=== PATIENT | male | born 1940 | race Caucasian/White ===

== ENCOUNTER 2024-06-27 07:36 | Emergency (ER) | payer MEDICARE, BC, SELFPAY ==
[2024-06-27 07:38] VITALS: BP 199/96
[2024-06-27 07:54] VITALS: BMI 26.8
[2024-06-27 08:04] VITALS: BP 175/82
[2024-06-27 08:18] LABS: % Basophils 0.7 % (0-2); % Eosinophils 2.2 % (0-6); % Immature Granulocytes 0.3 % (0-0.5); % Lymphocytes 28.2 % (20.5-51.1); % Monocytes 8.2 % (1.7-9.3); % Neutrophils 60.4 % (42.2-75.2); Absolute Eosinophils 0.1 10^3/uL (0-0.7); Absolute Lymphocytes 1.7 10^3/uL (1.2-3.4); Absolute Monocytes 0.5 10^3/uL (0.1-0.6); Absolute Neutrophils 3.5 10^3/uL (1.4-6.5); Hematocrit 44.9 % (39.0-52.0); Hemoglobin 15.7 g/dL (13.0-18.0); Mean Corpuscular Hgb 31.7 pg (27.0-31.0); Mean Corpuscular Volume 90.7 fL (80.0-94.0); Mean Platelet Volume 9.9 fL (7.4-10.4); Nucleated Red Blood Cells % 0 % (-); Platelet Count 272 10^3/uL (130-400); Red Blood Cell Count 4.95 10^6/uL (4.70-6.10); Red Cell Dist. Width 12.8 % (11.5-14.5); White Blood Cell Count 5.9 10^3/uL (4.8-10.8)
--- NOTE | 2024-06-27 08:22 | ED.GENMED ---
History of Present Illness
General
Chief Complaint: Dizziness
Source: patient and spouse
Time Seen by Provider: 06/27/24 07:56
History of Present Illness
History of Present Illness:
Presents to the emergency room for evaluation of having a sensation that his balance and coordination is off. Patient first noticed the symptoms approximately 8 PM last night. He denies any focal numbness, tingling or weakness. His speech is
normal. He has no word finding difficulty. Patient denies a sense of movement or spinning but rather just feels like he has difficulty with coordination. He is able to ambulate but takes short steps. No headache. No chest pain or shortness of
breath. Patient returned from a trip to [place] 3 days ago. He has been feeling jet lag. He denies taking any sedatives or pain medication.
Past History
Past History
ED Past Medical History: None
ED Past Surgical History: Orthopedic
Phy Exam
Physical Exam
Physical Exam:
General: Awake, Alert, Oriented X3. No acute distress.
Vitals: unremarkable
Head: Atraumatic
Eyes: Pupils equal, EOMI
Throat: Airway intact, no exudates
Neck: Trachea midline
Lungs: Clear and equal b/l
Heart: Regular rate, no murmurs
Abd: Soft, Nontender, No pulsatile mass
Neuro: Cranial nerves intact, muscle strength equal bilaterally, cerebellar exam normal. No nystagmus elicited with a [place]-Hallpike maneuver
Skin: Warm, dry, no rash
Extremities: pulses equal b/l, no edema
Course
Orders/Labs/Results
Orders:
Orders
06/27/24 08:07
Complete Blood Count/With Diff Urgent
Comprehensive Metabolic Panel Urgent
Troponin I Urgent
06/27/24 08:13
EKG [Electrocardiogram (*1)] Urgent
Reason for Study: Vertigo / Dizzy
EKG- Treatment ONCE
06/27/24 08:18
CT Head & Neck Angio W/wo IV Urgent
Comment:
Reason For Exam: ataxia
06/27/24 08:19
0.9% Sodium Chloride 500 ml [Nss] 500 ml IV BOLUS
Abnormal Lab Results
06/27/24
08:07
MCH 31.7 H pg
(27.0-31.0)
Glucose 103 H mg/dl
(70-99)
06/27/24 08:07
06/27/24 08:07
Vital Signs
Initial and Last Documented VS:
Initial Vital Signs
Temp Pulse Resp BP Pulse Ox
97.8 F 51 16 199/96 99
06/27/24 07:38 06/27/24 07:38 06/27/24 07:38 06/27/24 07:38 06/27/24 07:38
Last Documented Vital Signs
Temp Pulse Resp BP Pulse Ox
97.8 F 56 16 136/80 98
06/27/24 07:38 06/27/24 12:00 06/27/24 12:00 06/27/24 12:00 06/27/24 11:45
MDM/Problems Addressed
Differential Diagnosis Includes:
cva, dehydration, electrolyte abn
MDM/Problems Addressed:
83-year-old male presents with difficulty walking. He feels somewhat off balance. Physical exam does not show any significant ataxia that does seem to walk with a shortened gait to help with his balance. Labs are reassuring. CT head and neck
shows no acute ischemic event at no large vessel occlusion. Neurology consultation was obtained. Dr. Scales came and evaluated the patient. He observed the CT scan and felt that there was significant cervical degenerative changes which might be
causing stenosis of the cervical canal. Patient is stable for discharge home. He recommends MRI and neurosurgical follow-up as an outpatient.
*Radiology
Radiology exam reviewed: radiology read reviewed
*Pulse Oximetry
Patient hypoxic: no
*EKG
Interpreted by ED Provider?: Yes
Heart Rate: 51
Rate: bradycardiac
Rhythm: sinus
QRS Pattern: left bundle branch block
Ischemia: no ischemia
*Tugboat Captain Interpretation
Rate: bradycardiac
Interpretation: abnormal
Heart Rate: 51
Rhythm: sinus
*Critical Care Note
Total Time (30-74mins, 75-104mins- exclusive of procedures): Not Applicable
ED Attending Note
-
Portions of this chart may have been created with voice recognition software.� Occasional wrong word or��sound alike� substitutions may have occurred due to the inherent limitations of voice recognition software.
Discharge Plan
Departure
Patient Disposition: Home (Routine Discharge)
Date of Disposition: 06/27/24
Time of Disposition: 12:08
Patient with high blood pressure during this ER visit?: Yes
Condition: Good
Discharge Problem:
Ataxia, Cervical spinal stenosis
Instructions: Cervical Myelopathy
Prescriptions:
No Action
olmesartan 20 MG tablet
40 mg PO DAILY
finasteride 5 mg Tablet
5 mg PO DAILY
omeprazole 20 mg Tablet,Delayed Release (Dr/Ec)
20 mg PO Q48H
latanoprost 0.005 % Drops
1 drp BOTH EYES HS
famotidine 20 MG tablet
20 mg PO DAILYPRN PRN (Reason: gerd)
dorzolamide-timolol 1 DROP drops
1 drp BOTH EYES BID
Referrals:
Sho Wilkerson MD [Family Provider] -
Mela Spain MD [Active] -
Activity Restrictions/Additional Instructions:
Fortunately your workup here in the emergency room did not show any evidence for a stroke. You were evaluated by Dr. Scales from neurology. He believes your symptoms are related to narrowing of the cervical spine. He recommends that you follow-up
with your primary care doctor and get a referral for an MRI of the cervical spine as well as a referral for neurosurgical evaluation. I have provided you the contact information for neurosurgeons that are local.
Interventions
Interventions:
*Risk Screen - Suicide Last Done: 06/27/24 08:12
*General Assessment Last Done: 06/27/24 07:38
*Neglect/Abuse Screening Last Done: 06/27/24 08:12
ED- Fall Risk Assessment Last Done: 06/27/24 07:57
*ED COVID-19 Vaccine History Last Done: 06/27/24 07:38
*Nursing Disposition Last Done: 06/27/24 12:26
ED- Neurological Assessment Last Done: 06/27/24 07:57
ED- Cardiac Assessment Last Done: 06/27/24 07:57
ED Swallowing Screen Last Done: 06/27/24 07:57
Discharge Date and Time
Discharge Date/Time: 06/27/24 12:25
Print Language: LAO
[2024-06-27] MEDS: NSS 500 IV (08:27)
[2024-06-27 08:30] LABS: ALT (SGPT) 29 U/L (0-50); AST (SGOT) 34 U/L (17-59); Albumin 4.6 g/dl (3.5-5.0); Alkaline Phosphatase 53 U/L (38-126); Blood Urea Nitrogen 15 mg/dl (9-20); Calcium 9.9 mg/dl (8.4-10.2); Carbon Dioxide 27 mmol/L (22-30); Chloride 101 mmol/L (98-107); Estimated Creatinine Clearance 54 ml/min; Glucose 103 mg/dl (70-99); Potassium 4.8 mmol/L (3.5-5.1); Sodium 140 mmol/L (135-145); Total Bilirubin 0.7 mg/dl (0.2-1.3); Total Protein 7.6 g/dl (6.3-8.2); eGFR > 60.00
[2024-06-27 08:41] LABS: Troponin I < 0.012 ng/ml
[2024-06-27 11:00] VITALS: BP 149/73
[2024-06-27 12:00] VITALS: BP 136/80
== END 2024-06-27 12:25 | disposition home or self-care (01) ==
LOC: EMR 07:36
PROVIDERS: EMERGENCY PHYSICIAN Emergency Medicine; FAMILY PHYSICIAN Family Medicine
DX: R27.0 Ataxia, unspecified (principal); M48.02 Spinal stenosis, cervical region; R03.0 Elevated blood-pressure reading, without diagnosis of hypertension; R42 Dizziness and giddiness; R26.2 Difficulty in walking, not elsewhere classified; I44.7 Left bundle-branch block, unspecified
CPT/HCPCS: 99284; 96360; 70496; 70498; 80053; 84484; 85025; 93005; Q9967

== ENCOUNTER → 2024-09-12 06:26 | Day surgery (SDC) | payer MEDICARE, BC, SELFPAY | LOC: GI 06:26 | PROVIDERS: ATTENDING PHYSICIAN Internal Medicine Gastroenterology | DX: Z12.11 Encounter for screening for malignant neoplasm of colon (principal); K64.8 Other hemorrhoids; K44.9 Diaphragmatic hernia without obstruction or gangrene; K31.7 Polyp of stomach and duodenum; K22.89 Other specified disease of esophagus; K22.70 Barrett's esophagus without dysplasia; K29.70 Gastritis, unspecified, without bleeding; K29.81 Duodenitis with bleeding; Z86.0100 Personal history of colon polyps, unspecified | CPT/HCPCS: 43239; G0105; 88305; 88342 ==

== ENCOUNTER → 2025-05-29 13:41 | Outpatient (REF) | payer MEDICARE, BC, SELFPAY | LOC: RCS 13:41 | PROVIDERS: ATTENDING PHYSICIAN Internal Medicine Cardiovascular Disease; FAMILY PHYSICIAN Family Medicine | DX: R00.2 Palpitations (principal) | CPT/HCPCS: 93306 ==

== ENCOUNTER 2025-09-13 18:43 | Inpatient (IN) | payer MEDICARE, BC, SELFPAY ==
[2025-09-13] VITALS (7 sets, daily range): BP systolic 123–160; BP diastolic 67–86; BMI 26.4
--- NOTE | 2025-09-13 15:38 | ED.GENMED ---
History of Present Illness
<Carl Mckeon MD, Resident - Last Filed: 09/13/25 17:32>
General
Chief Complaint: Fall
Source: patient
Time Seen by Provider: 09/13/25 15:25
History of Present Illness
History of Present Illness:
Patient is an 84-year-old male with PMH HTN, HLD, L femur fracture, and PE who presents to the [place] ED for hip injury suffered after mechanical fall around 2 PM this afternoon. Patient was going down steps in his garage when he tripped and
fell on his left hip. No loss of consciousness. No blood thinners. Patient did not hit his head. Patient immediately experienced pain in his left hip, and he was unable to get up due to pain. Fortunately, a neighbor quickly noticed he had
fallen and came to his aid. Even with the neighbor's help, patient had limited mobility due to pain. Patient then decided to go to the ED. At rest and with external rotation of the hip, patient's pain is 1/10. With attempted hip flexion or
internal rotation of the leg, patient's pain is a 10/10. Pain localized to left hip, without radiation. Limited ROM due to pain. Otherwise, motor and sensory intact.
Past History
<Carl Mckeon MD, Resident - Last Filed: 09/13/25 17:32>
Past History
ED Past Medical History: GERD, HTN, Hypercholesterolemia and Other (Pulmonary embolism)
ED Past Surgical History: Orthopedic (L femur fracture)
Review of Systems
<Carl Mckeon MD, Resident - Last Filed: 09/13/25 17:32>
Review of Systems
Constitutional: Denies fever, fatigue or chills
Respiratory: Denies trouble breathing
Cardiac: Denies chest pain, palpitations or syncope
Musculoskeletal: Reports joint pain
Neurological: Denies weakness or numbness
Phy Exam
<Carl Mckeon MD, Resident - Last Filed: 09/13/25 17:32>
Physical Exam
Physical Exam:
General: NAD. Conversant.
MSK: Patient lying in bed comfortably with left leg externally rotated. Severely reduced ROM due to pain with attempted internal rotation of leg and flexion of hip. Point tenderness on palpation of left hip.
Neuro: A&O x 3. No focal deficits. Motor, sensory intact bilateral lower extremities. No pallor, cyanosis, or coolness to touch in bilateral lower extremities. CN II through XII grossly intact.
CV: RRR. S1, S2 noted. No M/R/G. No LE edema.
Pulm: CTAB. No wheeze or crackles.
GI: Soft, nontender. Nondistended.
Course
<Carl Mckeon MD, Resident - Last Filed: 09/13/25 17:32>
Orders/Labs/Results
Orders:
Orders
09/13/25 15:28
Hip, Left 2-3 Views [CR Hip - LT w/wo Pel 2-3 Vw*] Urgent
Comment:
Reason For Exam: fall
Include a pelvis x-ray?: Yes
09/13/25 16:15
Complete Blood Count/With Diff Urgent
Comprehensive Metabolic Panel Urgent
09/13/25 16:22
Femur, Left 2 View [CR Femur - Left Min 2 Vw] Urgent
Comment:
Reason For Exam: L hip fx, prior femur fx
Knee, Left 3 Views [CR Knee - Left 3 Views] Urgent
Comment:
Reason For Exam: L hip fx, prior femur fx
09/13/25 16:32
Ketorolac [Toradol] 15 mg IV NOW STA
Abnormal Lab Results
09/13/25
16:15
RBC 4.66 L 10^6/uL
(4.70-6.10)
MCH 31.3 H pg
(27.0-31.0)
Sodium 132 L mmol/L
(135-145)
Chloride 97 L mmol/L
(98-107)
Glucose 114 H mg/dl
(70-99)
09/13/25 16:15
09/13/25 16:15
Vital Signs
Initial and Last Documented VS:
Initial Vital Signs
Temp Pulse Resp Pulse Ox
97.8 F 68 18 99
09/13/25 15:18 09/13/25 15:18 09/13/25 15:18 09/13/25 15:18
Last Documented Vital Signs
Temp Pulse Resp BP Pulse Ox
97.8 F 71 18 156/86 99
09/13/25 15:18 09/13/25 15:26 09/13/25 15:18 09/13/25 15:26 09/13/25 15:39
<Carl Bianchi MD - Last Filed: 09/13/25 16:49>
Orders/Labs/Results
Orders:
Orders
09/13/25 15:28
Hip, Left 2-3 Views [CR Hip - LT w/wo Pel 2-3 Vw*] Urgent
Comment:
Reason For Exam: fall
Include a pelvis x-ray?: Yes
09/13/25 16:15
Complete Blood Count/With Diff Urgent
Comprehensive Metabolic Panel Urgent
09/13/25 16:22
Femur, Left 2 View [CR Femur - Left Min 2 Vw] Urgent
Comment:
Reason For Exam: L hip fx, prior femur fx
Knee, Left 3 Views [CR Knee - Left 3 Views] Urgent
Comment:
Reason For Exam: L hip fx, prior femur fx
09/13/25 16:32
Ketorolac [Toradol] 15 mg IV NOW STA
Abnormal Lab Results
09/13/25
16:15
RBC 4.66 L 10^6/uL
(4.70-6.10)
MCH 31.3 H pg
(27.0-31.0)
Sodium 132 L mmol/L
(135-145)
Chloride 97 L mmol/L
(98-107)
Glucose 114 H mg/dl
(70-99)
09/13/25 16:15
09/13/25 16:15
Vital Signs
Initial and Last Documented VS:
Initial Vital Signs
Temp Pulse Resp Pulse Ox
97.8 F 68 18 99
09/13/25 15:18 09/13/25 15:18 09/13/25 15:18 09/13/25 15:18
Last Documented Vital Signs
Temp Pulse Resp BP Pulse Ox
97.8 F 71 18 156/86 99
09/13/25 15:18 09/13/25 15:26 09/13/25 15:18 09/13/25 15:26 09/13/25 15:39
<Carl Mckeon MD, Resident - Last Filed: 09/13/25 17:32>
MDM/Problems Addressed
Differential Diagnosis Includes:
Hip fracture
Hip contusion
Hip dislocation
Femur fracture
Femur contusion
MDM/Problems Addressed:
Assessment: Patient is an 84-year-old male with PMH of HTN, PE, and L femur fracture who presents to the [place] ED for severe L hip pain, inability to ambulate, and reduced ROM due to pain following a mechanical fall at home that caused him to
fall on his L hip. No blood thinners, loss of consciousness, or head injury. L hip x-ray showed acute comminuted and angulated intertrochanteric left femur fracture.
Plan:
#L hip pain
Imaging: L hip x-ray, L femur x-ray, L knee x-ray
Labs: CBC, CMP
Orthopedics aware, plan for or tomorrow
Admit to medicine
<Carl Mckeon MD, Resident - Last Filed: 09/13/25 17:32>
*Pulse Oximetry
SaO2: 99
Oxygen Mode of Delivery: Room air
Patient hypoxic: no
*Critical Care Note
Total Time (30-74mins, 75-104mins- exclusive of procedures): Not Applicable
ED Attending Note
<Carl cMkeon MD, Resident - Last Filed: 09/13/25 17:32>
-
Portions of this chart may have been created with voice recognition software.� Occasional wrong word or��sound alike� substitutions may have occurred due to the inherent limitations of voice recognition software.
<Carl Bianchi MD - Last Filed: 09/13/25 16:49>
ED Attending Note
Patient seen and examined by attending physician: Yes
I performed a history and physical exam of patient and discussed management with resident, I reviewed resident's note and agree with documented findings and plan of care.: Yes
ED Attending Note:
Patient tripped and fell landing on his left hip. No syncope. No other trauma. No head injury neck injury chest wall injury. No chest pain or shortness of breath. Significant pain at the left hip. Unable to ambulate. Previous history of a phill
in the left femur 2 years ago in [place].
On exam patient is nontoxic. Normocephalic atraumatic. Neck nontender. No chest wall tenderness. Lungs are clear and equal. Heart regular rate and rhythm. Abdomen is nontender. Upper extremities unremarkable. Right lower extremity
unremarkable. Pelvis is stable. Shortened externally rotated left leg at the hip. Obvious left proximal femur fracture. Discussed with orthopedics. They did ask for some additional views. Will admit medically with pending OR. NPO.
Discharge Plan
Departure
Prescriptions:
No Action
olmesartan 20 MG tablet
40 mg PO DAILY
finasteride 5 mg Tablet
5 mg PO DAILY
omeprazole 20 mg Tablet,Delayed Release (Dr/Ec)
20 mg PO Q48H
latanoprost 0.005 % Drops
1 drp BOTH EYES HS
famotidine 20 MG tablet
20 mg PO DAILYPRN PRN (Reason: gerd)
dorzolamide-timolol 1 DROP drops
1 drp BOTH EYES BID
Referrals:
Sho Wilkerson MD [Family Provider, Family Practice]
Interventions
Interventions:
*Risk Screen - Suicide Last Done: 09/13/25 15:26
*General Assessment Last Done: 09/13/25 15:26
*Neglect/Abuse Screening Last Done: 09/13/25 15:26
*ED- Fall Risk Assessment Last Done: 09/13/25 15:29
*ED COVID-19 Vaccine History Last Done: 09/13/25 15:29
*ED Influenza Vaccine History Last Done: 09/13/25 15:29
ED-Musculoskeletal Assessment Last Done: 09/13/25 15:30
ED- Neurological Assessment Last Done: 09/13/25 15:30
ED-Skin Assessment Last Done: 09/13/25 15:30
Discharge Date and Time
Print Language: [place]
[2025-09-13 16:24] LABS: Hematocrit 42.1 % (39.0-52.0); Hemoglobin 14.6 g/dL (13.0-18.0); Mean Corp Hgb Conc. 34.7 g/dL (33.0-37.0); Mean Corpuscular Volume 90.3 fL (80.0-94.0); Nucleated Red Blood Cells % 0 % (-); Platelet Count 260 10^3/uL (130-400); Red Cell Dist. Width 12.7 % (11.5-14.5)
[2025-09-13 16:41] LABS: ALT (SGPT) 26 U/L (0-50); AST (SGOT) 27 U/L (17-59); Albumin 4.4 g/dl (3.5-5.0); Alkaline Phosphatase 45 U/L (38-126); Blood Urea Nitrogen 18 mg/dl (9-20); Calcium 9.1 mg/dl (8.4-10.2); Carbon Dioxide 27 mmol/L (22-30); Chloride 97 mmol/L (98-107); Estimated Creatinine Clearance 49 ml/min; Glucose 114 mg/dl (70-99); Potassium 3.8 mmol/L (3.5-5.1); Sodium 132 mmol/L (135-145); Total Protein 7.3 g/dl (6.3-8.2); eGFR > 60.00
[2025-09-13] MEDS: TORADOL 15 MG IV ×2 (17:17→21:18)
--- NOTE | 2025-09-13 17:51 | HPS.HSE ---
Family Physician
-
Family Physician: Sho Wilkerson MD
Chief Complaint
-
Fall, left hip/femur pain external rotation of leg
History of Present Illness
84-year-old male who was going down the steps in his garage when he tripped and fell landing on his left hip he denies hitting his head or loss of consciousness. He was unable to get up due to pain. His neighbor called EMS who brought him to the
ER where he was found to have a left intertrochanteric femur fracture on x-rays. Patient with history of prior femur fracture. He has externally rotated left leg. The patient denies head injury, headache, fever, chills, sore throat, chest pain,
palpitations, cough, shortness of breath, abdominal pain, nausea, vomiting, diarrhea, urinary symptoms. Patient has past medical history of daily alcohol use, osteopenia, osteoarthritis bilateral knees, rheumatoid arthritis, HTN, HLD, bilateral
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
Medical History
Past Medical History
Past Medical History: Reports Other
Additional Past Medical History:
Daily alcohol use
Osteopenia
Osteoarthritis bilateral knees
Rheumatoid arthritis patient reports in remission used to be on methotrexate
HTN
HLD
Bilateral pulmonary embolisms provoked post total knee arthroplasty 2018
Right lower extremity DVT 2018
Gout
GERD
Heaton's esophagus
Diverticulosis/diverticulitis
Glaucoma
BPH with urinary retention
simple kidney cysts.
Past Surgical History: Reports Other
Additional Past Surgical History:
Bilateral knee replacement 04/25/2019
Left femur fracture repair
Laminectomy 1981
Bilateral cataract extraction
Left eye glaucoma surgery
Social History
Tobacco: Non-smoker
Alcohol: Daily (12 ounces of wine daily)
Drug: None
Personal:
Living: With Family ()
Employment: Retired
Family History
Family History: Not pertinent
Allergies / Home Medications
Allergies reflects when Allergies were last updated in [facility].
Home Medications with original date entered in [facility]
Allergy/Medication List:
Allergies
Allergy/AdvReac Type Severity Reaction Status Date / Time
No Known Allergies Allergy Verified 06/27/24 07:43
Home Medications
olmesartan 20 mg tablet 40 mg PO DAILY 05/26/19
dorzolamide 22.3 mg-timolol 6.8 mg/mL eye drops 1 drp BOTH EYES BID 06/27/24
finasteride 5 mg tablet 5 mg PO DAILY 06/27/24
latanoprost 0.005 % eye drops 1 drp BOTH EYES HS 06/27/24
omeprazole 20 mg tablet,delayed release 20 mg PO Q48H 06/27/24
M.V.I. 1 tab PO DAILY 09/13/25
brimonidine 0.1 % eye drops 1 drp LEFT EYE BID 09/13/25
hydrochlorothiazide 25 mg tablet 25 mg PO DAILY 09/13/25
rosuvastatin 5 mg tablet 5 mg PO DAILY 09/13/25
Review of Systems
-
History Source: Patient and Family ()
A 12 point ROS was completed and negative except as noted: Yes
Constitutional: Denies Fever or Fatigue
EENT: Denies Sore Throat or Runny Nose
Respiratory: Denies Cough or Trouble Breathing
Cardiac: Denies Chest Pain, Diaphoresis, Palpitations or Syncope
Abdomen/GI: Denies Abdominal Pain, Nausea, Vomiting, Diarrhea or Constipated
: Denies Dysuria, Frequency, Flank Pain, Incontinence or Difficulty Voiding
Musculoskeletal: Reports Joint Pain (Left upper femur with swelling, pain, external rotation of left leg); Denies Edema
Skin: Denies Itching or Rash
Neurological: Denies Dizzy or Headache
Endocrine: Reports No Symptoms
Hematologic/Lymphatic: Reports No Symptoms
Psych: Reports Calm
Physical Exam
Vital Signs
Vital Signs
Temp Pulse Resp BP Pulse Ox
97.8 F 71 18 156/86 99
09/13/25 15:18 09/13/25 15:26 09/13/25 15:18 09/13/25 15:26 09/13/25 15:39
Physical Exam
General: Comfortable and Conversant
HEENT: NormoCephalic, Anicteric, Moist mucous membranes, Atraumatic, PERRLA, [place] Conjunctivae, No Ptosis and Neck Nontender
Respiratory: Clear; No Wheezes, Rales or Rhonchi
Cardiac: S1/S2 and Regular Rhythm; No Murmur, Rub, Gallop or Peripheral Edema
Breast: Deferred by me
GI: Soft, Non Tender, Non Distended, Normal Bowel Sounds and No Hepatosplenomegaly
Rectal: Deferred by Provider
Genito-urinary: Deferred by me
Musculoskeletal: No Clubbing, No Cyanosis and Edema, Left Lower Extremity (Left upper femur with swelling, pain, external rotation of left leg, dorsal pedal pulse +2, distal neurovascular status intact skin pink and warm); No Edema, Left Upper
Extremity, Edema, Right Upper Extremity or Edema, Right Lower Extremity
Skin: Warm and Dry; No Rash
Neuro: AO x 3, Nonfocal/grossly intact, Cranial Nerves Intact and No Sensory Deficits; No Slurred Speech, Facial Droop, Tremors or Sedated
Psych: Calm
Laboratory Results
-
09/13/25 16:15
09/13/25 16:15
Laboratory Results
Total Bilirubin 0.7 mg/dl (0.2-1.3) 09/13/25 16:15
AST 27 U/L (17-59) 09/13/25 16:15
ALT 26 U/L (0-50) 09/13/25 16:15
Alkaline Phosphatase 45 U/L (38-126) 09/13/25 16:15
Data Reviewed
-
Diagnostic Radiology: Report Reviewed by me
Lab Data: Labs Reviewed by me
Impression/Plan
-
Impression/plan:
Admit to MedSurg
#Mechanical fall with left intertrochanteric fx and old femur fracture
- N.p.o. after midnight
- OR tomorrow 09/14/2025 8 AM
- IV pain control
- PT/OT/case management consult
- Ortho consult Dr. Ramon aware
- IV Toradol, IV Dilaudid, IV Zofran as needed
- Check preop EKG
2D echo 05/29/2025: EF 57%, normal LV S LVSF, no wall abnormalities, mild LVH, mild MR/AR/TR
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
#Right lower extremity DVT 2019
#BPH with history urinary retention
Bladder scan protocol
- Continue finasteride 5 mg daily
#Alcohol use disorder
Patient drinks approximately 12 ounces of wine daily
No history of DTs/tremors
#History osteopenia
#Osteoarthritis bilateral knees
- Patient denies history of vitamin D or calcium intake
#Rheumatoid arthritis reports in remission
Used to be on methotrexate
#HTN�benign
BP 156/86
- Continue olmesartan 40 mg daily
-Continue HCTZ daily
#HLD
-Continue Crestor
#Gout
#GERD
#Heaton's esophagus
- Continue omeprazole 20 mg every 48 hours
#Glaucoma
- Continue dorzolamide/timolol 1 drop both eyes twice daily, brimonidine 0.1% left eye twice daily, latanoprost 1 drop both eyes at bedtime
Other PMH:
#Simple kidney cyst
#Diverticulosis/diverticulitis
DVT prophylaxis
SCDs will defer further DVT prophylaxis postsurgery to Ortho given history of bilateral PEs post bilateral knee replacements 2018
Full code
--- NOTE | 2025-09-13 18:20 | W.PN.UPDATE ---
Update Note
Progress Note Update
This note serves as an addendum to the H&P by dining room attendant cafeteria JANIS�
Desiree Keren
HPI
84M HX b/l TKA , HX provoked post op PE/DVT seen at ER: [facility] ER s/p OSH fall and Lt Hip pain
- tripped and fell landing on his left hip he denies hitting his head or loss of consciousness
- unable to get up due to pain.
- neighbor called EMS who brought him to the ER
- HX prior femur fracture.
ROS
denies head injury, headache, fever, chills, sore throat, chest pain, palpitations, cough, shortness of breath, urinary symptoms.
Relevant VS
Temp Pulse Resp BP Pulse Ox
97.8 F 71 18 156/86 99
09/13/25 15:18 09/13/25 15:26 09/13/25 15:18 09/13/25 15:26 09/13/25 15:39
PE
Gen: NAD
HEENT: anicteric , atraumatic head
Neck: supple
Lungs: CTA
Cor: RRR S1 S2
Abdomen:�soft benign
[employer]: AAO3
MS: no edema
Relevant Data
09/13/25
16:15
WBC 7.0
Hgb 14.6
Plt Count 260
Sodium 132 L
Potassium 3.8
Chloride 97 L
Creatinine 1.2
eGFR > 60.00
Glucose 114 H
L Knee XR
- Postsurgical change of the left knee. No evidence complication.
- Healed distal femur fracture.
- No acute fracture of the knee identified
L Hip XR
- Acute comminuted and angulated intertrochanteric left femur fracture. New.
- Moderate bilateral hip osteoarthritis. Stable
- Postsurgical and healing posttraumatic change of the left femoral shaft. New from previous exam
Last hospitalist admission:
ASSESSMENT & PLAN
Pending Rx reconciliation
Acute comminuted and angulated intertrochanteric left femur traumatic Fx
- associated with mechanical fall ( No head injury, Not on blood thinner)
- Moderate bilateral hip OA
- HX B/l TKR
- Not on blood thinners
- Risk outweigh benefits of ORIF
- Medically acceptable t proceed for Ortho OR
- Ortho consulted (Dr. Ramon) and planning on OR tomorrow at 8 AM
HX provoked b/l PE and DVT s/p B/l TKA ( 2019)
- currently not on OAC
DVT Px: SCD
Full code
IP MS
[2025-09-13] MEDS: PROTONIX 40 MG PO (21:18)
[2025-09-13] MEDS: NON-FORMULARY ITEM 1 DROP LEFT EYE (22:27)
[2025-09-13] MEDS: TRUSOPT 2% OPHTHALMIC SOLUTION OPHTH ×2 (22:28→22:34)
[2025-09-13] MEDS: TIMOPTIC 0.5% OPHTHALMIC SOLUTION 1 DROP OPHTH (22:28)
[2025-09-13] MEDS: XALATAN OPHTHALMIC SOLUTION 1 DROP BOTH EYES (22:28)
--- NOTE | 2025-09-13 23:03 | PTCARENOTE ---
Addendum entered by Yanira Roger RN 09/13/25 23:06:
Patient arrived to [facility] at 2000 from ED.
Original Note:
pt arrived to [facility] from ED, assisted from stretcher to bed. AAOx3, L leg slightly externally rotated and shorted. VSS and pt states pain is at acceptable level at this time. Pts' own eye drop sent down to pharmacy for identification. Plan of care
explained and all questions answered at this time, call faustin within reach. Assessment on going.
[2025-09-14] VITALS (10 sets, daily range): BP systolic 114–152; BP diastolic 67–88; PULSE 83; O2SAT 98
[2025-09-14 07:17] LABS: Hematocrit 39.9 % (39.0-52.0); Hemoglobin 13.2 g/dL (13.0-18.0); Mean Corp Hgb Conc. 33.1 g/dL (33.0-37.0); Mean Corpuscular Volume 92.1 fL (80.0-94.0); Nucleated Red Blood Cells % 0 % (-); Platelet Count 224 10^3/uL (130-400); Red Cell Dist. Width 12.7 % (11.5-14.5)
[2025-09-14 07:30] LABS: ALT (SGPT) 22 U/L (0-50); AST (SGOT) 22 U/L (17-59); Albumin 3.8 g/dl (3.5-5.0); Alkaline Phosphatase 42 U/L (38-126); Blood Urea Nitrogen 23 mg/dl (9-20); Calcium 8.9 mg/dl (8.4-10.2); Carbon Dioxide 28 mmol/L (22-30); Chloride 97 mmol/L (98-107); Estimated Creatinine Clearance 45 ml/min; Glucose 105 mg/dl (70-99); Potassium 3.8 mmol/L (3.5-5.1); Sodium 133 mmol/L (135-145); Total Protein 6.7 g/dl (6.3-8.2); eGFR 54.85
[2025-09-14] MEDS: COZAAR PO (07:30)
[2025-09-14] MEDS: NON-FORMULARY ITEM LEFT EYE (07:30)
--- NOTE | 2025-09-14 07:33 | CON.ORTHO ---
Consultation
-
Date/Time Consultation Requested: 09/13/2025
Date/Time Consultation Performed: 09/14/2025
Requesting Provider: ANJUM Ansari
Performing Provider: Barbie Grady PA-C, for Dr. Zoltan Ramon
Reason for Consultation: Left hip intertrochanteric fracture
Consultation - Orthopedics
History
HPI: Mr. Lynn is an 84-year-old male who presented to [facility] emergency department after tripping down some steps and landing directly on his left hip. He had immediate pain and inability to ambulate. Fortunately, a neighbor was
nearby and assisted him until an ambulance could arrive and transport him to the hospital. X-rays were taken in the emergency department and demonstrated a left displaced intertrochanteric proximal femur fracture. He does have a history of a
periprosthetic femoral shaft fracture sustained in 2020 that was fixed with a retrograde IM nail in [place]. This healed uneventfully. He also had bilateral TKAs, performed under the direction of Dr. Soto in 2018. Following this procedure, he
did end up with a DVT of his right lower extremity and PEs of his bilateral lungs. He was placed on Eliquis for this for a period of time, but is no longer on any oral anticoagulation. At rest, he reports his pain is well-controlled. He denies
any numbness or tingling of his left lower extremity. [facility] was consulted and to discuss definitive management of his fracture.
Past medical history: Significant for hypertension, hyperlipidemia, GERD, Heaton's esophagus, glaucoma, BPH, PE/DVT 2019.
Past surgical history: Bilateral TKAs 2019, left femur ORIF with retrograde IM nail 2020, laminectomy, cataract removal, left glaucoma procedure.
Social history: Lives at home with . Denies tobacco use. Daily alcohol consumption.
Family history: Noncontributory.
Review of system: All systems reviewed and negative except for those mentioned in HPI.
Allergies / Home Medications
Allergy/AdvReac Type Severity Reaction Status Date / Time
No Known Allergies Allergy Verified 06/27/24 07:43
�Medication �Instructions �Recorded
dorzolamide 22.3 mg-timolol 6.8 1 drp BOTH EYES BID 06/27/24
mg/mL eye drops
finasteride 5 mg tablet 5 mg PO DAILY 06/27/24
latanoprost 0.005 % eye drops 1 drp BOTH EYES HS 06/27/24
omeprazole 20 mg tablet,delayed 20 mg PO Q48H 06/27/24
release
aspirin 81 mg tablet 81 mg PO HS 09/13/25
brimonidine 0.1 % eye drops 1 drp LEFT EYE BID 09/13/25
hydrochlorothiazide 25 mg tablet 25 mg PO DAILY 09/13/25
olmesartan 40 mg tablet 40 mg PO DAILY 09/13/25
psyllium 1 packet PO DAILY 09/13/25
rosuvastatin 5 mg tablet 5 mg PO DAILY 09/13/25
therapeutic multivitamin 1 tab PO DAILY 09/13/25
Vital Signs / Lab Results
Temp Pulse Resp BP Pulse Ox
97.8 F 56 16 138/68 97
09/14/25 07:20 09/14/25 07:20 09/14/25 07:20 09/14/25 07:20 09/14/25 07:20
09/14/25 06:28
09/14/25 06:28
Physical examination:
General: Well-developed, well-nourished male in no acute distress at rest. AAO x 4.
HEENT: Atraumatic, normocephalic, neck supple.
Lungs: Nonlabored breathing on room air. No audible wheezing.
Heart: Regular rate and rhythm.
Left hip: Diffuse swelling noted about hip and anterior thigh. No abrasions or ecchymosis. Mild tenderness to palpation over the lateral hip. Range of motion not tested due to known fracture. Leg is shortened and externally rotated. Calf is
soft and nontender to palpation. Neurovascular intact distally. Small, superficial open wound on the lateral aspect of lower leg from recent dermatologic procedure and use of pneumatic compression device.
Radiographic studies:
X-rays of the left knee, femur, and hip show an acute fracture of the left intertrochanteric region. There is 90 degrees convex lateral angulation. 1 fracture fragment involves the lesser trochanter, which is mildly displaced medially, making is a
three-part fracture. Mild diffuse joint space narrowing of the bilateral hip joints. There is callus formation about the fracture in the mid femoral shaft with associated healing. Left total knee arthroplasty in place without any signs of acute
osseous abnormality
Assessment / Plan
Assessment: Left intertrochanteric proximal femur fracture.
Plan: Unfortunately, Mr. Lynn sustained a displaced intertrochanteric proximal femur fracture of his left leg. This will require surgical intervention in the form of an open reduction, internal fixation. Complicating this fracture is the fact
that he has a retrograde IM nail for a previous femoral shaft fracture sustained in 2020. We had a lengthy discussion in regards to surgical approaches, including possible [place] compression hip screw vs. removal of existing hardware and placement
of a gamma nail. The surgery was explained in detail along with the associated risks, benefits, and recovery process. Surgical and blood consents were signed and placed in patient's chart. The patient has been optimized from a medical standpoint,
so the plan will be to proceed with the open reduction, internal fixation of left intertrochanteric fracture and possible removal of hardware under the direction of Dr. Ramon this morning at 8 AM. Postoperatively, he will likely be toe-touch
weightbearing depending on the level of fixation achieved during surgery. He will work with physical therapy postoperatively to determine whether he is safe for discharge home with home care or if he will require a rehab stay. He has been n.p.o.
since midnight. His left hip was marked as the correct surgical site. IV antibiotics have been ordered and are all call to the OR. All questions were answered and patient was in agreement with treatment recommendations.
[2025-09-14] MEDS: TRUSOPT 2% OPHTHALMIC SOLUTION 1 DROP OPHTH ×2 (07:42→21:58)
[2025-09-14] MEDS: TIMOPTIC 0.5% OPHTHALMIC SOLUTION 1 DROP OPHTH ×2 (07:42→21:57)
--- NOTE | 2025-09-14 11:12 | PTCARENOTE ---
pt returned from PACU to Room 2117 via bed. pt arrived awake and alert, at bedside. VS: [id number]/73, 99% on 2L NC. care ongoing.
--- NOTE | 2025-09-14 13:23 | W.PN.HOSP.TC ---
Today's Communication/Plan
-
PT/OT-may require rehab
eliquis for dvt ppx
pain control.
bowel regimen
Assessment / Plan
Assessment / Plan
#Mechanical fall with left intertrochanteric fx and old femur fracture
-s/p ORIF.
-Pain control.
-PT/OT-Toe touch weigt bearing?
-Eliquis low dose for Dvt ppx as history of DVT in the past -post orthopedic procedures.
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
#Right lower extremity DVT 2019
#BPH with history urinary retention
Bladder scan protocol
- Continue finasteride 5 mg daily
#Alcohol use disorder
Patient drinks approximately 12 ounces of wine daily
No history of DTs/tremors
#History osteopenia
#Osteoarthritis bilateral knees
- Patient denies history of vitamin D or calcium intake
#Rheumatoid arthritis reports in remission
Used to be on methotrexate
#HTN�benign
- Continue olmesartan 40 mg daily
-Continue HCTZ daily
#HLD
-Continue Crestor
#Gout
#GERD
#Heaton's esophagus
- Continue omeprazole 20 mg every 48 hours
#Glaucoma
- Continue dorzolamide/timolol 1 drop both eyes twice daily, brimonidine 0.1% left eye twice daily, latanoprost 1 drop both eyes at bedtime
DVT prophylaxis- Eliquis
Full code
Anticipated Discharge: > 48 hours
Subjective/Interval History
-
Date of Service: September 14, 2025
eating lunch
denies much pain
Objective Data
-
Labs:
Laboratory Results
09/14/25
06:28
WBC 8.1
Hgb 13.2
Hct 39.9
Plt Count 224
Sodium 133 L
Potassium 3.8
Chloride 97 L
Carbon Dioxide 28
BUN 23 H
Creatinine 1.3
Glucose 105 H
Calcium 8.9
Total Bilirubin 1.1
AST 22
ALT 22
Alkaline Phosphatase 42
Vital Signs:
Vital Signs
Temp Pulse Resp BP Pulse Ox
96.4 F L 59 16 141/73 99
09/14/25 11:30 09/14/25 11:30 09/14/25 11:30 09/14/25 11:30 09/14/25 11:30
I&O
09/13/25 09/14/25 09/15/25
06:59 06:59 06:59
Intake Total 240 / 240 50 / 50
Output Total 200 / 200
Balance 40 / 40 50 / 50
Physical Exam
-
General: Well Developed and No Apparent Distress
HEENT: Normocephalic, Atraumatic and Moist Mucous Membranes
Respiratory: Clear to Auscultation
Cardiac: Regular Rhythm and S1/S2; Negative Murmur, Rub or Gallop
GI: Soft, Nontender, Nondistended and Normal Bowel Sounds; Negative Organomegaly
Rectal: Deferred by Provider
Musculoskeletal: No Clubbing, No Cyanosis and No Edema
Skin: Negative Rash
Neuro: Awake and Nonfocal/Grossly Intact
Psych: Calm
Data Reviewed
-
Total Time Spent with Patient (in minutes): 55
--- NOTE | 2025-09-14 15:27 | CM ---
Initial assessment completed with at bedside.
Pt is an 84yr old male who had a fall with femur fx needing ORIF.
At baseline, pt lives with in a multi level home with 2ste. Pt is indep with mobility and ADLs at home. Pt does not drive due to poor eyesight.
Per , they are going to move to 1st level where there is a small half step/threshold that he would need to negotiate, but no full size stairs
At home, pt has not been using RW, but does have 2 RW, commode, and cane from prior knee replacements.
Pt has not used [facility], but has been to [facility] following those knee replacements.
PCP; Sho Wilkerson
Pharm; [facility]
PLAN; TBD. is open to recommendations from PT.
[2025-09-14] MEDS: ANCEF 5 IV (16:57)
[2025-09-14] MEDS: CRESTOR 5 MG PO (16:58)
[2025-09-14] MEDS: FLUSH (NSS) 1 FLUSH IV (16:58)
[2025-09-14] MEDS: PROSCAR 5 MG PO (16:58)
[2025-09-14] MEDS: ROXICODONE 10 MG PO (17:05)
[2025-09-14] MEDS: NON-FORMULARY ITEM 1 DROP LEFT EYE (21:58)
[2025-09-14] MEDS: XALATAN OPHTHALMIC SOLUTION 1 DROP BOTH EYES (21:58)
[2025-09-14] MEDS: SENOKOT-S 1 TABLET PO (21:59)
[2025-09-15] MEDS: ANCEF 5 IV (01:17)
[2025-09-15 03:00] VITALS: BP 127/73
--- NOTE | 2025-09-15 05:34 | W.PN.ORTHO ---
Today's Communication / Plan
-
Appreciate the primary team, continue Tx
Dispo per CM, appreciate their efforts
TTWB x 2 weeks LL on device/assistance
PT/OT
Eliquis 2.5mg BID x 3 days, then 5mg BID x 4 weeks (Hx DVT/PE s/p TKA in 2019)
Pain control
[place] out 2 weeks post-op (SNF or office)
If darin out at SNF outpatient Ortho in 2 weeks for for xrays and to consider progressing to WBAT
Will follow
Assessment
.
Distal Motor Intact: Yes
Dressing:
Clean, dry and intact left thigh
Assessment:
POD#1 ORIF Left hip
Overall doing/feeling well
Calf soft, nontender
Plan
.
Surgery / Date: Left hip ORIF Sep 30 ([facility])
DVT Prophylaxis: Other (Eliquis 2.5mg BID x 3 days, then 5mg BID x 4 weeks)
Activity:
Out of bed. TTWB
PT/OT
Discharge Plan: Other (Appreciate CM)
Subjective
.
.:
Patient resting comfortably. Endorses some pain to the left hip
Vital Signs and Labs
.
Vital Signs and Labs:
Temp Pulse Resp BP Pulse Ox
97.8 F 76 18 127/73 97
09/15/25 03:00 09/15/25 03:00 09/15/25 03:00 09/15/25 03:00 09/15/25 03:00
[2025-09-15 07:01] LABS: Hematocrit 35.0 % (39.0-52.0); Hemoglobin 11.9 g/dL (13.0-18.0); Mean Corp Hgb Conc. 34.0 g/dL (33.0-37.0); Mean Corpuscular Volume 93.8 fL (80.0-94.0); Nucleated Red Blood Cells % 0 % (-); Platelet Count 232 10^3/uL (130-400); Red Cell Dist. Width 13.0 % (11.5-14.5)
[2025-09-15 07:27] LABS: ALT (SGPT) 20 U/L (0-50); AST (SGOT) 34 U/L (17-59); Albumin 3.7 g/dl (3.5-5.0); Alkaline Phosphatase 41 U/L (38-126); Blood Urea Nitrogen 19 mg/dl (9-20); Calcium 8.8 mg/dl (8.4-10.2); Carbon Dioxide 28 mmol/L (22-30); Chloride 96 mmol/L (98-107); Estimated Creatinine Clearance 53 ml/min; Glucose 132 mg/dl (70-99); Potassium 4.0 mmol/L (3.5-5.1); Sodium 130 mmol/L (135-145); Total Protein 6.6 g/dl (6.3-8.2); eGFR > 60.00
[2025-09-15 08:00] VITALS: BP 135/65
[2025-09-15] MEDS: SENOKOT-S 1 TABLET PO ×2 (08:30→19:50)
[2025-09-15] MEDS: COZAAR 100 MG PO (08:30)
[2025-09-15] MEDS: ELIQUIS 2.5 MG PO ×2 (08:30→19:50)
[2025-09-15] MEDS: CRESTOR 5 MG PO (08:30)
[2025-09-15] MEDS: PROSCAR 5 MG PO (08:30)
[2025-09-15] MEDS: TRUSOPT 2% OPHTHALMIC SOLUTION 1 DROP OPHTH ×2 (08:31→19:49)
[2025-09-15] MEDS: TIMOPTIC 0.5% OPHTHALMIC SOLUTION 1 DROP OPHTH ×2 (08:31→19:50)
[2025-09-15] MEDS: NON-FORMULARY ITEM 1 DROP LEFT EYE ×2 (08:33→19:49)
[2025-09-15] MEDS: ROXICODONE 10 MG PO (08:40)
--- NOTE | 2025-09-15 10:37 | W.PN.HOSP.TC ---
Today's Communication/Plan
-
Await PM&R /rodriges acceptance/?auth
hold hctz
eliquis for dvt ppx
trend labs
pain control
incentive spirometry ordered
Assessment / Plan
Assessment / Plan
#Mechanical fall with left intertrochanteric fx and old femur fracture
-s/p ORIF.
-Pain control.
-PT/OT-Toe touch weigt bearing?
-Eliquis low dose for Dvt ppx as history of DVT in the past -post orthopedic procedures. Plan for 2.5mg BID x 3d then 5mg BID x 4 weeks per orthopedic.
#Leukocytosis likely reactive post op surgery
-monitor for now. afebrile
-IS order
#Mild hyponatremia
-?due to pain. Holding HCTZ.
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
#Right lower extremity DVT 2019
#BPH with history urinary retention
Bladder scan protocol
- Continue finasteride 5 mg daily
#Alcohol use disorder
Patient drinks approximately 12 ounces of wine daily
No history of DTs/tremors
#History osteopenia
#Osteoarthritis bilateral knees
- Patient denies history of vitamin D or calcium intake
#Rheumatoid arthritis reports in remission
Used to be on methotrexate
#HTN�benign
- Continue olmesartan 40 mg daily
-hold HCTZ daily
#HLD
-Continue Crestor
#Gout
#GERD
#Heaton's esophagus
- Continue omeprazole 20 mg every 48 hours
#Glaucoma
- Continue dorzolamide/timolol 1 drop both eyes twice daily, brimonidine 0.1% left eye twice daily, latanoprost 1 drop both eyes at bedtime
DVT prophylaxis- Eliquis
Full code
PT/OT recs PMR. Physiatry consulted. CM aware.
Anticipated Discharge: Within 24 hours
Subjective/Interval History
-
Date of Service: September 15, 2025
states of hip pain with movement
Objective Data
-
Labs:
Laboratory Results
09/15/25
05:54
WBC 13.9 H
Hgb 11.9 L
Hct 35.0 L
Plt Count 232
Sodium 130 L
Potassium 4.0
Chloride 96 L
Carbon Dioxide 28
BUN 19
Creatinine 1.1
Glucose 132 H
Calcium 8.8
Total Bilirubin 0.5
AST 34
ALT 20
Alkaline Phosphatase 41
Vital Signs:
Vital Signs
Temp Pulse Resp BP Pulse Ox
98.3 F 68 18 135/65 96
09/15/25 08:00 09/15/25 08:00 09/15/25 08:00 09/15/25 08:00 09/15/25 08:00
I&O
09/14/25 09/15/25 09/16/25
06:59 06:59 06:59
Intake Total 240 / 240 770 / 770
Output Total 200 / 200 800 / 800
Balance 40 / 40 -30 / -30
Physical Exam
-
General: Well Developed and No Apparent Distress
HEENT: Normocephalic, Atraumatic and Moist Mucous Membranes
Respiratory: Clear to Auscultation
Cardiac: Regular Rhythm and S1/S2; Negative Murmur, Rub or Gallop
GI: Soft, Nontender, Nondistended and Normal Bowel Sounds; Negative Organomegaly
Rectal: Deferred by Provider
Musculoskeletal: No Clubbing, No Cyanosis and No Edema
Skin: Negative Rash
Neuro: Awake and Nonfocal/Grossly Intact
Psych: Calm
Data Reviewed
-
Total Time Spent with Patient (in minutes): 55
[2025-09-15 11:42] VITALS: BP 143/73; PULSE 63; O2SAT 99
--- NOTE | 2025-09-15 12:11 | CM ---
Acute Rehab recommended; Referral sent to [facility] via [facility]; PM&R pending
Plan: Discharge to [facility] when bed is available
[2025-09-15 15:00] VITALS: BP 115/55
--- NOTE | 2025-09-15 18:28 | CON.MD ---
Consultation - Medical
-
Chief Complaint:�Left hip fracture
�
History of Present Illness:�84-year-old male with PMH (as below) presented to [facility] on 09/13/2025 with trip and fall landing on his left hip. Found to have a left intertrochanteric femur fracture with externally rotated left leg. On
09/14/2025 he had a left open reduction internal fixation of a left intertrochanteric periprosthetic femur fracture by Dr. Zoltan Ramon. Made toe-touch weightbearing left lower extremity with possible progression to weightbearing as tolerated in
14 days. Placed on Eliquis low-dose as DVT prophylaxis with history of post orthopedic procedure DVT.
Overall doing okay has continued left hip pain. Positive flatus but no bowel movement since surgery. Is voiding without concern. Tolerating a diet.
�
Past Medical History:� daily alcohol use, osteopenia, osteoarthritis bilateral knees, rheumatoid arthritis, HTN, HLD, bilateral pulmonary embolisms provoked post total knee arthroplasty 2018 with right lower extremity DVT 2019, gout, GERD, Heaton's
esophagus, glaucoma, BPH, simple kidney cysts, diverticulosis/diverticulitis
Procedure History:�Bilateral knee replacement 04/25/2019, left femur fracture repair, laminectomy 1981, bilateral cataract extraction, left eye glaucoma surgery
Family History:�None pertinent
�
Social History:�
Functional Level Premorbidly:�Independent with all activities�
Functional Level Currently:�Min assist bed mobility, transfers, ambulate 30 feet with rolling walker. Min assist lower extremity dressing. Therapy recommending acute rehabilitation placement.
Tobacco:�Denies�
Alcohol:�12 ounces of wine daily
Drug use:�Denies�
�
Lives with:�
24-hour assistance available:�Yes
Number of floors:�2
# steps to enter:�2
# steps to second floor: Full flight
Potential First floor set up:�No
Driving:�No
Occupation:�Retired
�
�
Allergies:�
Allergy/AdvReac Type Severity Reaction Status Date / Time
No Known Allergies Allergy Verified 06/27/24 07:43
�
Review of Systems:�
Constitutional: (x) abNormal _fatigue
Eye: (x) Normal _
Ear/Nose/Throat: (x) Normal _
Respiratory: (x) Normal _
Cardiovascular: (x) Normal _
Gastrointestinal: (x) abNormal _no bowel movement since surgery
Genitourinary: (x) Normal _
Musculoskeletal: (x) abNormal _left hip pain from fracture surgery
Integumentary: (x) Normal _
Neurologic: (x) Normal _
Psychiatric: (x) Normal _
Endocrine: (x) Normal _
Hematologic/Lymphatic: (x) Normal _
Allergic/Immunologic: (x) Normal _
�
Medications:�
Active Current Visit Medication List
Category Date Time Status
Apixaban [Eliquis] Med 09/15/25 08:00 Active
2.5 mg PO BID
Bisacodyl [Dulcolax] Med 09/13/25 20:04 Active
10 mg RECTAL [id number] PRN
Docusate W/Senna [Senokot-S] Med 09/14/25 20:00 Active
1 tablet PO BID
Dorzolamide HCl [Trusopt 2% Ophthalmic Solution] Med 09/13/25 23:00 Active
1 drop OPHTH BID
Finasteride [Proscar] Med 09/14/25 08:00 Active
5 mg PO DAILY
Flush (0.9% Sodium Chloride) [Flush (Nss)] Med 09/13/25 21:00 Active
See Dose Instructions IV PER PROTOCOL
HYDROmorphone [Dilaudid] Med 09/13/25 20:04 Active
0.5 mg IV Q3HPRN PRN
HYDROmorphone [Dilaudid] Med 09/13/25 20:04 Active
1 mg IV Q4HPRN PRN
Hydrochlorothiazide [Oretic] Med 09/14/25 08:00 Hold
25 mg PO DAILY
Latanoprost [Xalatan Ophthalmic Solution] Med 09/13/25 22:00 Active
1 drop BOTH EYES HS
Losartan [Cozaar] Med 09/14/25 08:00 Active
100 mg PO DAILY
Oxycodone [Roxicodone] Med 09/14/25 09:51 Active
10 mg PO Q4HPRN PRN
Oxycodone [Roxicodone] Med 09/14/25 09:51 Active
5 mg PO Q4HPRN PRN
Pantoprazole [Protonix] Med 09/13/25 21:00 Active
40 mg PO Q48H
Polyethylene Glycol Powder [Miralax] Med 09/13/25 20:04 Active
17 grams PO DAILYPRN PRN
Rosuvastatin Calcium [Crestor] Med 09/14/25 08:00 Active
5 mg PO DAILY
Timolol Maleate 0.5% [Timoptic 0.5% Ophthalmic Solution Med 09/13/25 23:00 Active
]
1 drop OPHTH BID
brimonidine Med 09/13/25 23:00 Active
See Dose Instructions LEFT EYE BID
�
Vitals:�
Temp Pulse Resp BP Pulse Ox
98.0 F 63 18 115/55 99
09/15/25 15:00 09/15/25 15:00 09/15/25 15:00 09/15/25 15:00 09/15/25 15:00
Height 5 ft 10 in
Actual Weight 83.603 kg
Body Mass Index (BMI) 26.4
�
Physical Exam:�
General Appearance/Observation: Well-developed, well-nourished male in no apparent distress.�
Pain/Comfort Assessment: Denies�
Mood/Affect: Appropriate�
�
Integumentary/Operative Site:�Right hip incision with Aquacel clean dry and intact. Has bruising over the left hip.
�
Eyes: Conjunctiva/Lids: normal��� Pupils: pupils equal round and reactive to light and Accommodation
Ears/Nose/Throat: oral mucosa moist, throat clear.������������ Lips/Teeth/Gums: normal
Neck: No muscle spasm or tenderness�
Cardiovascular: Heart: regular, no murmur�
Pulses: dorsalis pedis 2+ bilaterally�
Respiratory: Respiratory Effort/Chest Expansion: normal������ Auscultation: Clear to auscultation bilaterally
Gastrointestinal: abdomen not tender, no distension, normal abdominal bowel sounds
Genitourinary: No Garcia�
Rectal Exam: Deferred�
Extremities:�Edema: None�Cyanosis: None�Trophic�changes: None
�
Neurology Exam:
Orientation: Alert, Oriented to self, Time, Place�
Memory: Intact immediately and at 3 minutes�
Repetition: Intact
Comprehension: Intact
Two step command: Intact
Naming: Intact
Cranial Nerves:
�� CNII:�Pupillary light reflex: Intact���Visual Field: Intact
�� CN III, IV, : Extraocular muscles: Intact�
�� CN V:�Facial Sensation�at�Forehead: Intact,�Maxilla: Intact,�Mandible: Intact
�� CN VII:�Facial movement: Symmetric
�� CN VIII:�Hearing: Normal
�� CN IX/X:�Speech & swallow: Normal,�Position of Uvula: Midline
�� CN XI:�Shoulder shrug: Symmetric
�� CN XII:�Tongue protrusion: Midline
Sensory:
�� Light touch: Intact in bilateral upper and lower extremities
�
Reflexes:
�� Biceps: 2+ bilaterally
�� Brachioradialis: 2+ bilaterally
�� Triceps: 2+ bilaterally
�� Patellar: 2+ bilaterally
�� Achilles: 2+ bilaterally
�� Babinski: Down going bilaterally
�� Clonus: None
�� Rehan: Negative bilaterally�
Cerebellar: Dysmetria/Ataxia: None�
Musculoskeletal: Motor: (Manual muscle scale 0-5)�
Muscle SA EF WE EE FF FA HF KE DF EHL PF
Right� 5 5 5 5 5 4 4 5 5 5 5
Left 5 5 5 5 5 4 1* 2* 5 5 5
�*pain limited
Tone: Normal in all extremities�
Range of Motion: Passively within normal limits in all extremities, except for left hip limited by pain
�
Lab Results
Labs
WBC 13.9 10^3/uL (4.8-10.8) H 09/15/25 05:54
RBC 3.73 10^6/uL (4.70-6.10) L 09/15/25 05:54
Hgb 11.9 g/dL (13.0-18.0) L 09/15/25 05:54
Hct 35.0 % (39.0-52.0) L 09/15/25 05:54
MCV 93.8 fL (80.0-94.0) 09/15/25 05:54
MCH 31.9 pg (27.0-31.0) H 09/15/25 05:54
MCHC 34.0 g/dL (33.0-37.0) 09/15/25 05:54
RDW 13.0 % (11.5-14.5) 09/15/25 05:54
Plt Count 232 10^3/uL (130-400) 09/15/25 05:54
MPV 10.6 fL (7.4-10.4) H 09/15/25 05:54
Abs Immat Gran (auto) 0.1 10^3/uL (0-0.05) H 09/15/25 05:54
Absolute Neuts (auto) 11.0 10^3/uL (1.4-6.5) H 09/15/25 05:54
Absolute Lymphs (auto) 1.6 10^3/uL (1.2-3.4) 09/15/25 05:54
Absolute Monos (auto) 1.2 10^3/uL (0.1-0.6) H 09/15/25 05:54
Absolute Eos (auto) 0.0 10^3/uL (0-0.7) 09/15/25 05:54
Absolute Basos (auto) 0.0 10^3/uL (0-0.2) 09/15/25 05:54
Immature Gran % 0.5 % (0-0.5) 09/15/25 05:54
Neutrophils % 79.6 % (42.2-75.2) H 09/15/25 05:54
Lymphocytes % 11.4 % (20.5-51.1) L 09/15/25 05:54
Monocytes % 8.4 % (1.7-9.3) 09/15/25 05:54
Eosinophils % 0.0 % (0-6) 09/15/25 05:54
Basophils % 0.1 % (0-2) 09/15/25 05:54
Nucleated RBC % 0 % (-) 09/15/25 05:54
Sodium 130 mmol/L (135-145) L 09/15/25 05:54
Potassium 4.0 mmol/L (3.5-5.1) 09/15/25 05:54
Chloride 96 mmol/L (98-107) L 09/15/25 05:54
Carbon Dioxide 28 mmol/L (22-30) 09/15/25 05:54
BUN 19 mg/dl (9-20) 09/15/25 05:54
Creatinine 1.1 mg/dL (0.7-1.3) 09/15/25 05:54
Estimated Creat Clear 53 ml/min 09/15/25 05:54
eGFR > 60.00 09/15/25 05:54
Glucose 132 mg/dl (70-99) H 09/15/25 05:54
Calcium 8.8 mg/dl (8.4-10.2) 09/15/25 05:54
Total Bilirubin 0.5 mg/dl (0.2-1.3) 09/15/25 05:54
AST 34 U/L (17-59) 09/15/25 05:54
ALT 20 U/L (0-50) 09/15/25 05:54
Alkaline Phosphatase 41 U/L (38-126) 09/15/25 05:54
Total Protein 6.6 g/dl (6.3-8.2) 09/15/25 05:54
Albumin 3.7 g/dl (3.5-5.0) 09/15/25 05:54
Blood Type O POS 09/14/25 07:18
Blood Type Confirm O POS 09/14/25 12:23
Antibody Screen Negative (Negative) 09/14/25 07:18
�
Diagnostic Results:�as per HPI�
�
Assessment
84 y/o M PMH (daily alcohol use, osteopenia, osteoarthritis bilateral knees, rheumatoid arthritis, HTN, HLD, bilateral pulmonary embolisms provoked post total knee arthroplasty 2019 with right lower extremity DVT 2019, gout, GERD, Heaton's
esophagus, glaucoma, BPH, simple kidney cysts, diverticulosis/diverticulitis) s/p 09/14/2025 left intertrochanteric periprosthetic ORIF by Dr. Zoltan Ramon with TTWB for at least 14 days resulting in ADL and ambulatory dysfunction.
Plan�
PM&R�PT/OT to increase independence with ADLs, improve balance, coordination, endurance, strength, mobility, community reintegration, decreased burden of care on others and family education.�
�
Left femoral ORIF 09/15/[address] Ramon: Toe-touch weightbearing monitor incision, pain control, stable level of 14 days per Ortho, can consider increasing to full weightbearing at that time. May shower. Improving range of motion and strength..
Postoperative anemia: Expected, 11.9 from 13.2
Leukocytosis: 13.9 from 8.1 likely postoperative
HTN: Hydrochlorothiazide held, Losartan 100 mg daily, monitor closely
HLD: Statin�
Rheumatoid arthritis:in remission not on medications.
Glaucoma: Dorzolamide, Latanoprost,
Psych: Psychology consult. Monitor mood, medications as needed.
Skin: monitor for pressure sores/rashes/lesions.
Pain: Oxycodone 5-10 mg q4h prn
FEN: Regular diet,
- Hyponatremia 130 from 133 from 132. Better hydrated today. Likely from pain. Monitor closely.
Bowel: Colace and Senna, PRN Miralax.
Bladder: BPH on Flomax, Proscar
Heaton�s esophagus/GERD: Pantoprazole
DVT Prophylaxis: Mechanical and Eliquis with history of provoked bilateral DVTs after knee replacement
Pulmonary: Incentive spirometry
Safety: Continue to reinforce assistance with all transfers.
Code Status: Full code
Dispo (date/plan/equipment needs): Home with family care. Social history reviewed.
Functional and Medical Goals:�Modified Independent with ADL�s, ambulation, transfers�
Discharge Destination:�Acute inpatient rehabilitation�
�
Thank you for allowing me to care for your patient. Please contact me with any questions or concerns.
Consultation
-
Date/Time Consultation Requested: 09/15/25
Date/Time Consultation Performed: 09/15/25
Requesting Provider: Dr. Kris Sandra
Performing Provider: Dr. Gary Dozier
Reason for Consultation: Hip fracture
[2025-09-15] MEDS: XALATAN OPHTHALMIC SOLUTION 1 DROP BOTH EYES (21:04)
[2025-09-15] MEDS: PROTONIX 40 MG PO (21:04)
[2025-09-15 23:11] VITALS: BP 122/56
--- NOTE | 2025-09-16 07:17 | W.PN.ORTHO ---
Today's Communication / Plan
-
84M POD 2 [facility] w/ Dr. Ramon
Appreciate the primary team, continue Tx
Dispo per CM, appreciate their efforts
TTWB x 2 weeks LL on device/assistance
PT/OT
Eliquis 2.5mg BID x 3 days, then 5mg BID x 4 weeks (Hx DVT/PE s/p TKA in 2019)
Pain control
Dressing order clarified
[facility] out 2 weeks post-op (SNF or office)
Outpatient Ortho in 2 weeks for for xrays and to consider progressing to [facility]
Orthopedic surgery will follow peripherally; please reengage with questions/concerns; discharge info UTD
Assessment
.
Distal Motor Intact: Yes
Dressing:
Clean, dry and intact.
Plan
.
Surgery / Date: Left hip ORIF Sep 30 ([facility])
Activity:
Out of bed.
PT/OT
Subjective
.
.:
Patient resting comfortably.
Vital Signs and Labs
.
Vital Signs and Labs:
Temp Pulse Resp BP Pulse Ox
97.9 F 59 14 122/56 96
09/15/25 23:11 09/15/25 23:11 09/15/25 23:11 09/15/25 23:11 09/15/25 23:11
[2025-09-16 07:25] VITALS: BP 132/59
[2025-09-16 07:53] LABS: Hematocrit 32.3 % (39.0-52.0); Hemoglobin 10.9 g/dL (13.0-18.0); Mean Corp Hgb Conc. 33.7 g/dL (33.0-37.0); Mean Corpuscular Volume 90.5 fL (80.0-94.0); Nucleated Red Blood Cells % 0 % (-); Platelet Count 219 10^3/uL (130-400); Red Cell Dist. Width 13.0 % (11.5-14.5)
[2025-09-16] MEDS: CRESTOR 5 MG PO (08:05)
[2025-09-16] MEDS: ROXICODONE 10 MG PO (08:05)
[2025-09-16] MEDS: SENOKOT-S 1 TABLET PO (08:06)
[2025-09-16] MEDS: COZAAR 100 MG PO (08:06)
[2025-09-16] MEDS: PROSCAR 5 MG PO (08:06)
[2025-09-16] MEDS: ELIQUIS 2.5 MG PO (08:06)
--- NOTE | 2025-09-16 08:06 | W.PN.HOSP.TC ---
Addendum entered and electronically signed by Kris Sandra MD 09/16/25 10:37:
Mild acute blood loss anemia likely due to surgery
Original Note:
Today's Communication/Plan
-
dc to [facility]
Assessment / Plan
Assessment / Plan
#Mechanical fall with left intertrochanteric fx and old femur fracture
-s/p ORIF.
-Pain control.
-PT/OT-Toe touch weigt bearing.
-Eliquis low dose for Dvt ppx as hstory of DVT in the past -post orthopedic procedures. Plan for 2.5mg BID x 3d then 5mg BID x 4 weeks per orthopedic.
-PMR eval agreed with acute rehab. Await bed.
#Leukocytosis likely reactive post op surgery
-monitor for now. afebrile
-IS order resolved.
#Mild hyponatremia
-?due to pain vs. HCTZ. Holding HCTZ. d.w with primary consulting database administrator Dr. Gary Montgomery-Pt was just placed on HCTZ for LE edema Per d/w will plan to stop HCTZ moving forward.
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
#Right lower extremity DVT 2019
#BPH with history urinary retention
Bladder scan protocol
- Continue finasteride 5 mg daily
#Alcohol use disorder
Patient drinks approximately 12 ounces of wine daily
No history of DTs/tremors
#History osteopenia
#Osteoarthritis bilateral knees
- Patient denies history of vitamin D or calcium intake
#Rheumatoid arthritis reports in remission
Used to be on methotrexate
#HTN�benign
- Continue olmesartan 40 mg daily
-hold HCTZ daily. BP overall well controlled.
#HLD
-Continue Crestor
#Gout
#GERD
#Heaton's esophagus
- Continue omeprazole 20 mg every 48 hours
#Glaucoma
- Continue dorzolamide/timolol 1 drop both eyes twice daily, brimonidine 0.1% left eye twice daily, latanoprost 1 drop both eyes at bedtime
DVT prophylaxis- Eliquis
Full code
PT/OT recs PMR. Physiatry consulted. CM aware.
More than 30 minutes spent in discharge including
Final examination of the patient
Summarizing hospital stay
Instructions for continuing care to all relevant caregivers
Preparation of discharge records, prescriptions, and referral forms
Total time spent (in minutes): 55
Anticipated Discharge: Today
Subjective/Interval History
-
Date of Service: September 16, 2025
pain with activity
Objective Data
-
Labs:
Laboratory Results
09/16/25
06:56
WBC 10.2
Hgb 10.9 L
Hct 32.3 L
Plt Count 219
Sodium Pending
Potassium Pending
Chloride Pending
Carbon Dioxide Pending
BUN Pending
Creatinine Pending
Glucose Pending
Calcium Pending
Vital Signs:
Vital Signs
Temp Pulse Resp BP Pulse Ox
97.9 F 59 14 122/56 96
09/15/25 23:11 09/15/25 23:11 09/15/25 23:11 09/15/25 23:11 09/15/25 23:11
I&O
09/15/25 09/16/25 09/17/25
06:59 06:59 06:59
Intake Total 770 / 770 80 / 80
Output Total 800 / 800
Balance -30 / -30 80 / 80
Physical Exam
-
General: Well Developed and No Apparent Distress
HEENT: Normocephalic, Atraumatic and Moist Mucous Membranes
Respiratory: Clear to Auscultation
Cardiac: Regular Rhythm and S1/S2; Negative Murmur, Rub or Gallop
GI: Soft, Nontender, Nondistended and Normal Bowel Sounds; Negative Organomegaly
Rectal: Deferred by Provider
Musculoskeletal: No Clubbing, No Cyanosis, No Edema and Other (L hip aquacell noted. no swelling. )
Skin: Negative Rash
Neuro: Awake and Nonfocal/Grossly Intact
Psych: Calm
[2025-09-16] MEDS: NON-FORMULARY ITEM 1 DROP LEFT EYE (08:09)
[2025-09-16] MEDS: TRUSOPT 2% OPHTHALMIC SOLUTION 1 DROP OPHTH (08:14)
[2025-09-16] MEDS: TIMOPTIC 0.5% OPHTHALMIC SOLUTION 1 DROP OPHTH (08:14)
[2025-09-16 08:27] LABS: Blood Urea Nitrogen 26 mg/dl (9-20); Calcium 8.6 mg/dl (8.4-10.2); Carbon Dioxide 29 mmol/L (22-30); Chloride 98 mmol/L (98-107); Estimated Creatinine Clearance 49 ml/min; Glucose 94 mg/dl (70-99); Potassium 3.8 mmol/L (3.5-5.1); Sodium 131 mmol/L (135-145); eGFR > 60.00
--- NOTE | 2025-09-16 10:35 | W.DCSUMMARY ---
Discharge Summary
Discharge Data
Date of Admission: 09/13/25
Date of Discharge: 09/16/25
-
Pending Results: No
Hospital Course
84-year-old male past medical history of alcohol use, BPH, osteopenia, osteoarthritis, rheumatoid arthritis, primary hypertension, hyperlipidemia, gout, history of pulmonary embolism and DVT who is presenting after mechanical fall. Patient was
found to have a left intertrochanteric femur fracture. Patient was eval by orthopedic. Patient underwent open reduction internal fixation. Postop patient was started on Eliquis 2.5 mg twice daily for 3 days then 5 mg twice daily for DVT
prophylaxis. Patient with mild leukocytosis which resolved. Mild acute blood loss anemia likely secondary to surgery was noted. Patient also had mild hyponatremia which was deemed secondary to hydrochlorothiazide was discontinued. Patient blood
pressure was overall well-controlled. Patient was eval by physical and Occupational Therapy recommended acute rehab. Patient was evaluated by physiatry and patient be discharged to acute rehab.
Discharge Plan
-
Patient Disposition: Acute Rehab Facility
Discharge Diagnosis/Procedures: left intertrochanteric femur fracture s/p open reduction internal fixation
Hyponatremia
Leukocytosis
Mild acute blood loss anemia due to surgery
Diet: Regular
Activity: As tolerated, With Walker and Other activity
Additional Activity: TTWB x 2 weeks
Driving Restrictions: No driving
Bathing Restrictions: OK to Shower
Activity Restrictions/Additional Instructions:
Eliquis 2.5mg BID x additional 2 days, then 5mg BID x 4 weeks
Referrals:
Ronaldo Maharaj PA-C [Specified Professional Personl, Orthopedics] - in two weeks
Sho Wilkerson MD [Family Provider, Family Practice] - in less than 1 week
Additional Discharge Medication Instructions: HCTZ was discontinued.
Prescriptions:
New
sennosides-docusate sodium [Senna Plus] 8.6-50 mg Tablet
1 tab PO BID Qty: 20 0RF
oxycodone 5 mg Tablet
5 mg PO Q4HPRN PRN (Reason: mod-severe pain) Qty: 12 0RF
Eliquis 2.5 mg Tablet
See Rx Instructions .ROUTE .COMPLEX Qty: 30 0RF
Rx Instructions:
Eliquis 2.5mg BID x 2 days, then 5mg BID x 4 weeks
Continued
finasteride 5 mg Tablet
5 mg PO DAILY
omeprazole 20 mg Tablet,Delayed Release (Dr/Ec)
20 mg PO Q48H
latanoprost 0.005 % Drops
1 drp BOTH EYES HS
dorzolamide-timolol 1 DROP drops
1 drp BOTH EYES BID
rosuvastatin 5 mg tablet
5 mg PO DAILY
brimonidine 0.1 % drops
1 drp LEFT EYE BID
therapeutic multivitamin Tablet
1 tab PO DAILY
olmesartan 40 mg tablet
40 mg PO DAILY
psyllium Packet
1 packet PO DAILY
aspirin 81 mg Tablet
81 mg PO HS
Discontinued
hydrochlorothiazide 25 mg tablet
25 mg PO DAILY
Discharge Orders:
Discharge Patient (As Directed); Ordered 09/16/25
Ordered By: Kris Sandra
Discharge Date and Time
Print Language: ARMENIAN
[2025-09-16] MEDS: DULCOLAX 10 MG RECTAL (10:42)
--- NOTE | 2025-09-16 11:25 | CM ---
Patient has been medically cleared for discharge to [facility] for rehab services. Transport via wheelchair. IMM completed. notified via telecom message.
Nurse to Nurse Report # [phone]
Fax#: [phone]
[2025-09-16 11:40] VITALS: BP 111/53
== END 2025-09-16 14:02 | DRG 481 ==
LOC: 2 SOUTH 18:43
PROVIDERS: Clinical Nurse Specialist Family Health; ADMITTING PHYSICIAN Internal Medicine; ATTENDING PHYSICIAN Hospitalist; CONSULT PHYSICIAN Orthopaedic Surgery Hand Surgery; CONSULT PHYSICIAN Physical Medicine & Rehabilitation; EMERGENCY PHYSICIAN Emergency Medicine; FAMILY PHYSICIAN Family Medicine
PROC: 0QS706Z Reposition Left Upper Femur with Intramedullary Internal Fixation Device, Open Approach (ICD-10-PCS; 2025-09-14)
DX: S72.142A Displaced intertrochanteric fracture of left femur, initial encounter for closed fracture (principal); D62 Acute posthemorrhagic anemia; M97.02XA Periprosthetic fracture around internal prosthetic left hip joint, initial encounter; E87.1 Hypo-osmolality and hyponatremia; W01.0XXA Fall on same level from slipping, tripping and stumbling without subsequent striking against object, initial encounter; F10.10 Alcohol abuse, uncomplicated; M06.9 Rheumatoid arthritis, unspecified; M16.0 Bilateral primary osteoarthritis of hip; M17.0 Bilateral primary osteoarthritis of knee; M85.80 Other specified disorders of bone density and structure, unspecified site; Z79.01 Long term (current) use of anticoagulants; Z79.899 Other long term (current) drug therapy; Z96.653 Presence of artificial knee joint, bilateral
CPT/HCPCS: 73502; 73552; 73562; 76000; 80048; 80053; 85025; 86850; 86900; 86901; 96374; 97116; 97162; 97166; 99284; C1713